=== PATIENT | male | born 1960 | race Caucasian/White ===

== ENCOUNTER 2016-05-19 13:27 | Day surgery (SDC) | payer OTHER ==
[~2016-05-19] VITALS: Ht 175.3 cm; Wt 87.0 kg
[~2016-05-19 13:27] MED LIST: 0.9% Sodium Chloride 1,000 ML IV PRN; METO25TA6 PO; NITR0.4T6 SL; OMEP20TA86 PO; Sodium Chloride LOK Flush 10 mL Syringe IV PRN; TEST200V20 IM; fentaNYL-PF 50 mCg/mL 2 mL Inj IVPUSH PRN
[2016-05-19] MEDS ORDERED: ATOR80TA PO (15:25)
[2016-05-19] MEDS ORDERED: CLOP75TA3 PO (15:25)
[2016-05-19] MEDS ORDERED: ASPI-973 PO (15:26)
[2016-05-19] MEDS ORDERED: LISI2.5T PO (15:26)
[2016-05-19 15:40] VITALS: BP 136/90; PULSE 80; RESP 12; O2SAT 96
[2016-05-19 16:40] VITALS: BP 151/83; PULSE 78; RESP 16; O2SAT 93
--- NOTE | 2016-05-19 16:41 | PCM.ENDCOL ---
Colonoscopy Date of Service: May 19, 2016 Physician Leonard Lawton MD Indication for Procedure Screening and patient is on Plavix. After discussion, patient would like a diagnostic colonoscopy now versus waiting until he is off of Plavix. Post Procedure Dx & Findings: Polyps Procedure Colonoscopy Prep adequate Withdrawal 7 minutes PROCEDURE IN DETAIL: After unremarkable rectal examination Olympus colonoscope was inserted patient' s anal canal was advanced to cecum. Landmarks identified including the ileocecal valve and the appendiceal orifice. Scope was withdrawn systematically. In the transverse colon, was a 2-3 mm polyp. About 25-30 cm from the anal verge, there was a 2 cm polyp. The mucosa of the cecum, ascending, transverse, descending, sigmoid, rectal mucosa lined with whitish, pink, smooth, glistening, normal-appearing mucosa, normal fine branching, underlying vascularity, normal haustra. The patient tolerated procedure and was transported to observation area. In the rectum retroflexion was done which showed hemorrhoids and anal canal was inspected carefully the way out and mild hemorrhoids noted. Impression Polyps Hemorrhoids Recommendation The patient follow-up in August of this year. Once he stops the Plavix will proceed with polyp resection. Presedation Assessment Risks and Benefits Informed consent was obtained from the patient after all risks and benefits including but not limited to drug reaction, infection, pain, bleeding, perforation, as well as alternatives were discussed. Patient monitoring Continuous pulse oximetry, cardiac monitoring, blood pressure monitoring, IV access, and oxygen at 2L per nasal cannula. Periprocedural Fentanyl: Fentanyl 125mcg Incrementally Midazolam: Midazolam 6mg Incrementally Complications There were no periprocedural complications identified. Post Procedure Plan Post Procedure Recommendations 1. Restrict activities today. 2. Resume normal activities in the morning. 3. Resume medications. 4. Patient informed of normal post procedure side effects as bloating, drowsiness, blood streaking in the stool. 5. average risk CRCS. If colon polyps come back as: -Hyperplastic- can repeat colonoscopy in 10 years -Tubular adenoma- repeat colonoscopy in 5 years -Tubulovillous/villous adenoma- repeat colonoscopy in 3 years -If any dysplasia- return to clinic as soon as possible 6. Please don't hesitate to call me with any questions. Leonard Lawton MD May 19, 2016 16:41
[2016-05-19 16:52] VITALS: BP 136/84; PULSE 79; RESP 12; O2SAT 97
[2016-05-19 16:53] VITALS: BP 145/77; PULSE 75; RESP 14; O2SAT 97
== END 2016-05-19 23:59 | disposition home or self-care (01) ==
LOC: END 13:27
PROVIDERS: ATTEND Internal Medicine
DX: Z12.11 Encounter for screening for malignant neoplasm of colon (principal); K63.5 Polyp of colon; K64.8 Other hemorrhoids; I25.10 Atherosclerotic heart disease of native coronary artery without angina pectoris; K21.9 Gastro-esophageal reflux disease without esophagitis; I10 Essential (primary) hypertension; Z87.891 Personal history of nicotine dependence; Z79.82 Long term (current) use of aspirin; Z95.5 Presence of coronary angioplasty implant and graft; Z79.02 Long term (current) use of antithrombotics/antiplatelets

== ENCOUNTER 2016-12-18 08:54 | Day surgery (SDC) | payer OTHER ==
[~2016-12-18] VITALS: Ht 177.8 cm; Wt 81.0 kg
[~2016-12-18 08:54] MED LIST changes: -0.9% Sodium Chloride 1,000 ML IV PRN; +0.9% Sodium Chloride 1,000 ML IV SCH; +ANAS1TAB7 PO; +ASPI-973 PO; +ATOR80TA PO; +CLOP75TA3 PO; +LISI2.5T PO; +VARD5TAB5 PO
[2016-12-18 09:43] VITALS: BP 128/85; PULSE 66; RESP 14; O2SAT 93
--- NOTE | 2016-12-18 10:41 | PCM.ENDCOL ---
Colonoscopy Date of Service: Dec 18, 2016 Physician Leonard Lawton MD Pre Procedure Diagnosis: History of polyps Post Procedure Dx & Findings: Polyps hemorrhoids diverticulosis Procedure Colonoscopy PROCEDURE IN DETAIL: Prep adequate Withdrawal time 19 minutes After unremarkable rectal examination the Olympus video colonoscope was inserted patient's anal canal and was advanced to cecum. Landmarks were identified including the ileocecal valve and appendiceal orifice. Scope was withdrawn systematically. Visualized colonic mucosa showed healthy shiny mucosa with normal healthy-appearing vasculature. In the distal ascending colon, there was a 2-3 mm polyp which was removed completely using cold snare. Transverse colon had 1 mm polyp which was removed completely using cold forceps. In the sigmoid colon there was a 2 cm polyp was removed completely using hot snare. One resolution clip deployed. Mucosal defect sealed. Several small diverticuli noted in the sigmoid colon. In the rectum retroflexion was done which showed hemorrhoids. Anal canal was inspected carefully on the way out and hemorrhoids noted. Impression Polyp 3 status post complete removal largest 2 cm. Diverticuli Hemorrhoids Recommendation Repeat colonoscopy 3 years Diverticular diet Presedation Assessment Risks and Benefits Informed consent was obtained from the patient after all risks and benefits including but not limited to drug reaction, infection, pain, bleeding, perforation, as well as alternatives were discussed. Patient monitoring Continuous pulse oximetry, cardiac monitoring, blood pressure monitoring, IV access, and oxygen at 2L per nasal cannula. Periprocedural Fentanyl: Fentanyl 100mcg Incrementally Midazolam: Midazolam 6mg Incrementally Complications There were no periprocedural complications identified. Post Procedure Plan Post Procedure Recommendations 1. Restrict activities today. 2. Resume normal activities in the morning. 3. Resume medications. 4. Patient informed of normal post procedure side effects as bloating, drowsiness, blood streaking in the stool. 5. average risk CRCS. If colon polyps come back as: -Hyperplastic- can repeat colonoscopy in 10 years -Tubular adenoma- repeat colonoscopy in 5 years -Tubulovillous/villous adenoma- repeat colonoscopy in 3 years -If any dysplasia- return to clinic as soon as possible 6. Please don't hesitate to call me with any questions. Leonard Lawton MD Dec 18, 2016 10:41
[2016-12-18 10:44] VITALS: BP 117/68; PULSE 59; RESP 14; O2SAT 98
[2016-12-18 10:54] VITALS: BP 117/63; PULSE 56; RESP 16; O2SAT 97
[2016-12-18 11:03] VITALS: BP 110/81; PULSE 63; RESP 16; O2SAT 99
--- NOTE | 2016-12-22 14:10 | PATH ---
SURGICAL PATHOLOGY Attending Physician:Leonard Lawton M.D. CASE STATUS: Signed Out PATIENT NAME: DEAN TABOR PID: [id number] : 1960 DATE COLLECTED:12/18/2016 16:31 SPECIMEN: 1: Colon, Polyp 2: Colon, Polyp 3: Colon, Polyp CLINICAL HISTORY: 1). ASCENDING COLON POLYP X1 2). TRANSVERSE POLYP X1 3). SIGMOID POLYP X1 FINAL DIAGNOSIS: 1. Ascending Colon Polyp, Polypectomy: Tubular adenoma. 2. Transverse Colon Polyp, Biopsy: Tubular adenoma. 3. Sigmoid Colon Polyp, Polypectomy: Tubular adenoma. ICD10: D12.6 GROSS DESCRIPTION: The specimen is received in three formalin filled containers labeled with the patient's name. 1). The specimen is labeled "ascending colon polyp" and consists of a 0.2 x 0.2 x 0.1 CM portion of tissue which is entirely submitted in cassette 1A. 2). The specimen is labeled "transverse colon polyp" and consists of a 0.1 x 0 1 x 0.1 CM portion of tissue which is entirely submitted in cassette 2A. 3). The specimen is labeled "sigmoid polyp" and consists of a 0.7 x 0.6 x 0.4 CM portion of tissue which is bisected and entirely submitted in cassette 3A. 12/18/2016DC ICD-9 CODES: CPT CODES: 1: 63617 2: 87084 3: 31209 Electronically Signed Out Goyo Lee MD, Ph.D. [facility] Pathology [facility], [place] [address] Technical component performed at [facility], [facility] [address], [place], [address]
== END 2016-12-18 23:59 | disposition home or self-care (01) ==
LOC: END 08:54
PROVIDERS: ATTEND Internal Medicine
DX: Z12.11 Encounter for screening for malignant neoplasm of colon (principal); D12.2 Benign neoplasm of ascending colon; D12.3 Benign neoplasm of transverse colon; D12.5 Benign neoplasm of sigmoid colon; K57.30 Diverticulosis of large intestine without perforation or abscess without bleeding; K64.8 Other hemorrhoids; Z86.010 Personal history of colon polyps
CPT/HCPCS: 45380; 45385; 99153; G0500; J2250; J3010; J7030